=== PATIENT | male | born 1950 | race Caucasian/White ===

== ENCOUNTER 2016-06-04 12:15 | Emergency (ER) | payer MEDICARE, MEDICAID ==
[2016-06-04 12:32] VITALS: BP 125/82; TEMP 97.9; O2SAT 98
[2016-06-04] MEDS ORDERED: CHLORHEXIDINE GLUCONATE 4 % 15 ML UD TOP ONE (12:41)
--- NOTE | 2016-06-04 13:08 | ED.PDOC ---
History of Present Illness - General Chief Complaint: Laceration Stated Complaint: laceration Time Seen by Provider: 06/04/16 13:05 Source: patient, RN notes reviewed, Vital Signs reviewed Exam Limitations: no limitations - History of Present Illness Initial Comments: This very pleasant 66 y/o male cut the tip of his right thumb while slicing tomatoes. Because he is on Eliquis, it bled quite a bit. The bleeding is now under control. He has only mild pain, no tingling. Timing/Duration: 1/2 hour Severity: mild Improving Factors: nothing Worsening Factors: nothing Associated Symptoms: denies symptoms Allergies/Adverse Reactions: Allergies Codeine Allergy (Severe, Verified 03/05/16 15:03) Other Creates a feeling of having a heart attack, panic attack Home Medications: Ambulatory Orders Levothyroxine Sodium [Levoxyl] 137 mcg PO DAILY 10/13/14 Lubiprostone [Amitiza] 24 mcg PO BID 10/13/14 Nitroglycerin [Nitrostat] 0.4 mg SL Q5MIN PRN 10/13/14 Pravastatin Sodium [Pravachol] 40 mg PO BEDTIME 10/13/14 Quetiapine Fumarate [Seroquel Xr] 50 mg PO BEDTIME 10/13/14 Venlafaxine HCl [Venlafaxine HCl ER] 150 mg PO DAILY 10/13/14 fentaNYL PATCH 100 MCG/HR [Duragesic Patch 100 MCG/HR] 100 mcg TOP Q72H Clonazepam 0.5 mg PO BEDTIME PRN 11/10/15 Cyanocobalamin Inj [Vitamin B-12 Inj] 1,000 mcg IM WKLY 11/10/15 Digoxin [Lanoxin Tab] 0.125 mg PO DAILY@1200 11/10/15 Docusate Sodium [Colace] 100 mg PO BID 11/10/15 Furosemide 40 mg PO BID PRN 11/10/15 Polyethylene Glycol 3350 [Miralax] 17 gm PO DAILY 11/10/15 Trazodone HCl 150 mg PO BEDTIME 11/10/15 Apixaban [Eliquis] 5 mg PO BID 01/21/16 Ferrous Sulfate [Feosol Tab] 65 mg PO DAILY 01/21/16 Flecainide [Tambocor] 100 mg PO BID 01/21/16 HYDROcodone 10MG/APAP 325MG [[place] 10/325] 1 tab PO Q4H PRN 01/21/16 Insulin Glargine [Toujeo Solostar] 10 dose SC DAILY 01/21/16 Mometasone Furoate-Formoterol [Dulera 200-5 Mcg/Act] 1 aer IN BID 01/21/16 Potassium Chloride Microencaps [Klor-Con M20] 20 meq PO BID PRN 01/21/16 diltiaZEM HCL CD [Cardizem CD] 120 mg PO QD 01/21/16 Review of Systems - Review of Systems Constitutional: States: no symptoms reported EENTM: States: no symptoms reported Respiratory: States: no symptoms reported Cardiology: States: no symptoms reported Gastrointestinal/Abdominal: States: no symptoms reported Genitourinary: States: no symptoms reported Musculoskeletal: States: no symptoms reported Skin: States: other - laceration Neurological: States: no symptoms reported Endocrine: States: no symptoms reported Hematologic/Lymphatic: States: no symptoms reported All other Systems: Reviewed and Negative Past Medical History (General) - Patient Medical History Hx Seizures: No Hx Stroke: Yes Hx Dementia: No Hx Asthma: No Hx of COPD: Yes Hx Cardiac Disorders: Yes - Atrial fib Hx Congestive Heart Failure: Yes Hx Pacemaker: No Hx Hypertension: Yes Hx Thyroid Disease: No Hx Diabetes: Yes Hx Gastroesophageal Reflux: No Hx Renal Disease: No Hx Cancer: No Hx of HIV: No Hx Hepatitis C: No Hx MRSA: No - Vaccination History Hx Tetanus, Diphtheria Vaccination: Yes - 3 years ago Hx Influenza Vaccination: Yes Hx Pneumococcal Vaccination: Yes - Social History Hx Tobacco Use: Yes Hx Chewing Tobacco Use: No Hx Alcohol Use: No Hx Substance Use: No Hx Substance Use Treatment: No Hx Depression: No Hx Physical Abuse: No Hx Emotional Abuse: No Hx Suspected Abuse: No - Female History Patient : No Family Medical History - Family History Father Family History: Unknown Name: Ton Gomez Living Status: Age at (years of age): 41 Cause of : enlarged heart and acute alcohol poisioning Hx Family Asthma: No Hx Family Congestive Heart Failure: Yes Hx Family Hypertension: Yes Hx Family Stroke: No Hx Cardiac Disease: Yes Hx Family Diabetes: Yes Hx Family Cancer: No Physical Exam - Physical Exam General Appearance: Alert, Comfortable, No apparent distress Ears, Nose, Throat: hearing grossly normal Extremity: normal range of motion, non-tender Neurologic: alert, normal mood/affect, oriented x 3 Skin Exam: other - small flap laceration to right volar tip of thumb. No fingernail involvement. Bleeding controlled. Progress - Progress Progress: 06/04/16 13:11 Right thumb was soaked in Shurlcleans and water for 15 minutes, then Dermabond applied. Procedures - Laceration/Wound Repair Right Finger Wound Length (cm): 0.5 Wound's Depth, Shape: superficial, irregular Wound Explored: clean Betadine Prep?: No - Soaked in Shurclens and water for 15 minutes. Wound Repaired With: dermabond Layer Closure?: No Sterile Dressing Applied?: Yes Splint Applied?: No Sling Applied?: No Departure - Departure Clinical Impression: Laceration of thumb Qualifiers: Encounter type: initial encounter Laterality: right Qualifier Code: (S61.011A) Laceration without foreign body of right thumb without damage to nail, initial encounter Time of Disposition: 13:12 Disposition: Discharge to Home or Self Care Condition: Excellent Departure Forms: ED Discharge - Pt. Copy, Patient Portal Self Enrollment Instructions: DI for Laceration Repair With Dermabond Diet: resume usual diet Home Medications: Ambulatory Orders Levothyroxine Sodium [Levoxyl] 137 mcg PO DAILY 10/13/14 Lubiprostone [Amitiza] 24 mcg PO BID 10/13/14 Nitroglycerin [Nitrostat] 0.4 mg SL Q5MIN PRN 10/13/14 Pravastatin Sodium [Pravachol] 40 mg PO BEDTIME 10/13/14 Quetiapine Fumarate [Seroquel Xr] 50 mg PO BEDTIME 10/13/14 Venlafaxine HCl [Venlafaxine HCl ER] 150 mg PO DAILY 10/13/14 fentaNYL PATCH 100 MCG/HR [Duragesic Patch 100 MCG/HR] 100 mcg TOP Q72H Clonazepam 0.5 mg PO BEDTIME PRN 11/10/15 Cyanocobalamin Inj [Vitamin B-12 Inj] 1,000 mcg IM WKLY 11/10/15 Digoxin [Lanoxin Tab] 0.125 mg PO DAILY@1200 11/10/15 Docusate Sodium [Colace] 100 mg PO BID 11/10/15 Furosemide 40 mg PO BID PRN 11/10/15 Polyethylene Glycol 3350 [Miralax] 17 gm PO DAILY 11/10/15 Trazodone HCl 150 mg PO BEDTIME 11/10/15 Apixaban [Eliquis] 5 mg PO BID 01/21/16 Ferrous Sulfate [Feosol Tab] 65 mg PO DAILY 01/21/16 Flecainide [Tambocor] 100 mg PO BID 01/21/16 HYDROcodone 10MG/APAP 325MG [[place] ] 1 tab PO Q4H PRN 01/21/16 Insulin Glargine [Toujeo Solostar] 10 dose SC DAILY 01/21/16 Mometasone Furoate-Formoterol [Dulera 200-5 Mcg/Act] 1 aer IN BID 01/21/16 Potassium Chloride Microencaps [Klor-Con M20] 20 meq PO BID PRN 01/21/16 diltiaZEM HCL CD [Cardizem CD] 120 mg PO QD 01/21/16 Additional Instructions: Follow up for any signs or symptoms of infection.
== END 2016-06-04 13:20 | disposition home or self-care (01) ==
LOC: ER 12:15
DX: S61.011A Laceration without foreign body of right thumb without damage to nail, initial encounter (principal); I48.91 Unspecified atrial fibrillation; J44.9 Chronic obstructive pulmonary disease, unspecified; Z86.73 Personal history of transient ischemic attack (TIA), and cerebral infarction without residual deficits; I11.0 Hypertensive heart disease with heart failure; I50.9 Heart failure, unspecified; E11.9 Type 2 diabetes mellitus without complications; Z87.891 Personal history of nicotine dependence; Z79.02 Long term (current) use of antithrombotics/antiplatelets; Z79.899 Other long term (current) drug therapy; Z79.4 Long term (current) use of insulin; W26.0XXA Contact with knife, initial encounter; Y93.G1 Activity, food preparation and clean up

== ENCOUNTER → 2016-06-16 | Outpatient (CLI) | payer MEDICARE, MEDICAID | END | disposition home or self-care (01) | LOC: NC 14:03 | PROVIDERS: ATTEND Family Medicine | DX: E11.9 Type 2 diabetes mellitus without complications (principal); E03.9 Hypothyroidism, unspecified; E78.5 Hyperlipidemia, unspecified ==

== ENCOUNTER 2016-07-15 15:50 | Emergency (ER) | payer MEDICARE, MEDICAID ==
[2016-07-15 16:06] VITALS: TEMP 98.3
[2016-07-15] MEDS ORDERED: LIDOCAINE 1% 10 ML VIAL INJ ONE (16:11)
[2016-07-15] MEDS ORDERED: POVIDONE IODINE 10 % 15 ML UD TOP ONE (16:13)
--- NOTE | 2016-07-15 16:14 | ED.PDOC ---
History of Present Illness - General Chief Complaint: Laceration Stated Complaint: laceration Time Seen by Provider: 07/15/16 15:58 Source: patient, RN notes reviewed, Vital Signs reviewed Exam Limitations: no limitations - History of Present Illness Initial Comments: Patient reports he was using a slicer to cut onions and ended up slicing the edge of his right thumb. Moderate bleeding. Timing/Duration: just prior to arrival Severity: moderate Location: extremities Improving Factors: other - pressure Worsening Factors: nothing Allergies/Adverse Reactions: Allergies Codeine Allergy (Severe, Verified 03/05/16 15:03) Other Creates a feeling of having a heart attack, panic attack Home Medications: Ambulatory Orders Levothyroxine Sodium [Levoxyl] 137 mcg PO DAILY 10/13/14 Lubiprostone [Amitiza] 24 mcg PO BID 10/13/14 Nitroglycerin [Nitrostat] 0.4 mg SL Q5MIN PRN 10/13/14 Pravastatin Sodium [Pravachol] 40 mg PO BEDTIME 10/13/14 Quetiapine Fumarate [Seroquel Xr] 50 mg PO BEDTIME 10/13/14 Venlafaxine HCl [Venlafaxine HCl ER] 150 mg PO DAILY 10/13/14 fentaNYL PATCH 100 MCG/HR [Duragesic Patch 100 MCG/HR] 100 mcg TOP Q72H Clonazepam 0.5 mg PO BEDTIME PRN 11/10/15 Cyanocobalamin Inj [Vitamin B-12 Inj] 1,000 mcg IM WKLY 11/10/15 Digoxin [Lanoxin Tab] 0.125 mg PO DAILY@1200 11/10/15 Docusate Sodium [Colace] 100 mg PO BID 11/10/15 Furosemide 40 mg PO BID PRN 11/10/15 Polyethylene Glycol 3350 [Miralax] 17 gm PO DAILY 11/10/15 Trazodone HCl 150 mg PO BEDTIME 11/10/15 Apixaban [Eliquis] 5 mg PO BID 01/21/16 Ferrous Sulfate [Feosol Tab] 65 mg PO DAILY 01/21/16 Flecainide [Tambocor] 100 mg PO BID 01/21/16 HYDROcodone 10MG/APAP 325MG [[place] 10/325] 1 tab PO Q4H PRN 01/21/16 Insulin Glargine [Toujeo Solostar] 10 dose SC DAILY 01/21/16 Mometasone Furoate-Formoterol [Dulera 200-5 Mcg/Act] 1 aer IN BID 01/21/16 Potassium Chloride Microencaps [Klor-Con M20] 20 meq PO BID PRN 01/21/16 diltiaZEM HCL CD [Cardizem CD] 120 mg PO QD 01/21/16 Review of Systems - Review of Systems Constitutional: States: no symptoms reported Musculoskeletal: States: no symptoms reported Skin: States: see HPI Neurological: Denies: numbness, paresthesia Past Medical History (General) - Patient Medical History Hx Seizures: No Hx Stroke: Yes Hx Dementia: No Hx Asthma: No Hx of COPD: Yes Hx Cardiac Disorders: Yes - Atrial fib Hx Congestive Heart Failure: Yes Hx Pacemaker: No Hx Hypertension: Yes Hx Thyroid Disease: No Hx Diabetes: Yes Hx Gastroesophageal Reflux: No Hx Renal Disease: No Hx Cancer: No Hx of HIV: No Hx Hepatitis C: No Hx MRSA: No - Vaccination History Hx Tetanus, Diphtheria Vaccination: Yes - 5 years ago Hx Influenza Vaccination: Yes Hx Pneumococcal Vaccination: Yes - Social History Hx Tobacco Use: Yes Hx Chewing Tobacco Use: No Hx Alcohol Use: No Hx Substance Use: No Hx Substance Use Treatment: No Hx Depression: No Hx Physical Abuse: No Hx Emotional Abuse: No Hx Suspected Abuse: No - Female History Patient : No Family Medical History - Family History Father Family History: Unknown Name: Ton Gomez Living Status: Age at (years of age): 41 Cause of : enlarged heart and acute alcohol poisioning Hx Family Asthma: No Hx Family Congestive Heart Failure: Yes Hx Family Hypertension: Yes Hx Family Stroke: No Hx Cardiac Disease: Yes Hx Family Diabetes: Yes Hx Family Cancer: No Physical Exam - Physical Exam General Appearance: Alert, Comfortable, No apparent distress, Well Developed, Well Groomed, Well Hydrated, Well Nourished Extremity: normal range of motion, non-tender, normal inspection, no pedal edema Neurologic: no motor/sensory deficits, alert, normal mood/affect, oriented x 3 Skin Exam: other - Right lateral thumb flap type laceration ~2.5cm with moderate bleeding. Skin Problem Location: upper extremities - right thumb Skin Character: other - see above Progress - Progress Progress: 07/15/16 17:17 After numbing thumb via a digital block with 2cc of 1% Lidocaine and cleaning wound and surrounding area well, noted the flap was pale, did not franchesca and had no capillary refill. Appeared to only be attached by a small flap of skin at distal edge of thumb nail. Decision was made to close/cover with steri- strips with the understanding that the flap may not survive. Patient understands and agrees with plan. Departure - Departure Clinical Impression: Accidental laceration Time of Disposition: 17:19 Disposition: Discharge to Home or Self Care Condition: Good Departure Forms: ED Discharge - Pt. Copy, Patient Portal Self Enrollment Instructions: DI for Laceration Repair Steri-Strips Diet: resume usual diet Activity: increase activity as tolerated Home Medications: Ambulatory Orders Levothyroxine Sodium [Levoxyl] 137 mcg PO DAILY 10/13/14 Lubiprostone [Amitiza] 24 mcg PO BID 10/13/14 Nitroglycerin [Nitrostat] 0.4 mg SL Q5MIN PRN 10/13/14 Pravastatin Sodium [Pravachol] 40 mg PO BEDTIME 10/13/14 Quetiapine Fumarate [Seroquel Xr] 50 mg PO BEDTIME 10/13/14 Venlafaxine HCl [Venlafaxine HCl ER] 150 mg PO DAILY 10/13/14 fentaNYL PATCH 100 MCG/HR [Duragesic Patch 100 MCG/HR] 100 mcg TOP Q72H Clonazepam 0.5 mg PO BEDTIME PRN 11/10/15 Cyanocobalamin Inj [Vitamin B-12 Inj] 1,000 mcg IM WKLY 11/10/15 Digoxin [Lanoxin Tab] 0.125 mg PO DAILY@1200 11/10/15 Docusate Sodium [Colace] 100 mg PO BID 11/10/15 Furosemide 40 mg PO BID PRN 11/10/15 Polyethylene Glycol 3350 [Miralax] 17 gm PO DAILY 11/10/15 Trazodone HCl 150 mg PO BEDTIME 11/10/15 Apixaban [Eliquis] 5 mg PO BID 01/21/16 Ferrous Sulfate [Feosol Tab] 65 mg PO DAILY 01/21/16 Flecainide [Tambocor] 100 mg PO BID 01/21/16 HYDROcodone 10MG/APAP 325MG [[place] 10/325] 1 tab PO Q4H PRN 01/21/16 Insulin Glargine [Toujeo Solostar] 10 dose SC DAILY 01/21/16 Mometasone Furoate-Formoterol [Dulera 200-5 Mcg/Act] 1 aer IN BID 01/21/16 Potassium Chloride Microencaps [Klor-Con M20] 20 meq PO BID PRN 01/21/16 diltiaZEM HCL CD [Cardizem CD] 120 mg PO QD 01/21/16
[2016-07-15 17:41] VITALS: BP 167/92; O2SAT 100
== END 2016-07-15 17:41 | disposition home or self-care (01) ==
LOC: ER 15:50
DX: S61.011A Laceration without foreign body of right thumb without damage to nail, initial encounter (principal); I48.91 Unspecified atrial fibrillation; I11.0 Hypertensive heart disease with heart failure; I50.9 Heart failure, unspecified; E11.9 Type 2 diabetes mellitus without complications; Z86.73 Personal history of transient ischemic attack (TIA), and cerebral infarction without residual deficits; Z79.4 Long term (current) use of insulin; Z79.899 Other long term (current) drug therapy; Z79.02 Long term (current) use of antithrombotics/antiplatelets; Z88.6 Allergy status to analgesic agent; W26.0XXA Contact with knife, initial encounter; Y92.9 Unspecified place or not applicable

== ENCOUNTER 2016-10-19 12:01 | Emergency (ER) | payer MEDICARE, MEDICAID ==
[2016-10-19 12:21] VITALS: TEMP 98.5
--- NOTE | 2016-10-19 12:32 | CT ---
EXAM DESCRIPTION: Head. CT head without contrast CLINICAL HISTORY: fall onto head. Is on anticoagulants COMPARISON: 04/04/2016 TECHNIQUE: Multiple axial images of the head without contrast. This exam was performed according to our departmental dose-optimization program, which includes automated exposure control, adjustment of the mA and/or kV according to patient size and/or use of iterative reconstruction technique. FINDINGS: There is no CT evidence of intracranial hemorrhage, mass effect, or new large territory infarction. Chronic infarct with encephalomalacia in the left cerebellar hemisphere. Mild patchy supratentorial white matter hypodensities. There are no abnormal extra-axial fluid collections. Calcific plaque in the visualized arteries. There is no acute calvarial defect. The visualized paranasal sinuses and the mastoids are clear. IMPRESSION: 1. No CT evidence of an acute intracranial normality. 2. Mild senescent changes. 3. Chronic left cerebellar infarct. Electronically signed by: Ke Flores MD 10/19/2016 12:30 PM CDT
--- NOTE | 2016-10-19 12:39 | RAD ---
EXAM DESCRIPTION: Right forearm, 2 views CLINICAL HISTORY: Pain after fall FINDINGS/ IMPRESSION: Mild osteoarthritis and chondrocalcinosis faintly seen at the elbow and wrist. Osteopenia. No fracture of the radius or ulna identified Electronically signed by: Deondre Enriquez MD 10/19/2016 12:37 PM CDT
--- NOTE | 2016-10-19 12:54 | RAD ---
EXAM DESCRIPTION: Shoulder,Left 2 or More Views CLINICAL HISTORY: left shoulder after fall FINDINGS/ IMPRESSION: Glenohumeral joint space narrowing. No fracture or dislocation. Mild osteoarthritis acromioclavicular joint Electronically signed by: Deondre Enriquez MD 10/19/2016 12:53 PM CDT
[2016-10-19] MEDS ORDERED: SODIUM CHLORIDE 0.9% 1000ML 1,000 ML IVS ONE (13:18)
--- NOTE | 2016-10-19 13:53 | ED.PDOC ---
History of Present Illness - General Chief Complaint: Trauma Stated Complaint: fall Time Seen by Provider: 10/19/16 12:14 Source: patient Exam Limitations: no limitations - History of Present Illness Initial Comments: Patient presents with headache, left shoulder pain, and right forearm pain after a fall. He has been having dizzy spells and is being treated with meclizine. He is also on Eloquis for atrial fibrillation. He was coming into his house when he felt dizzy and fell to the floor, striking the back of his head as well as his left shoulder. He also tried to break the fall with his right arm. Pain in the head is left occipito-parietal, constant, non-radiating , and sharpy. Intermittent in intensity. Pain in left shoulder is located at the A-C joint, constant and aching, intermittent in intensity, worse with movement, better with rest. No previous episodes this bad but has had some rotator cuff problems. Pain in right forearm is aching, constant, locate mid- radius laterally, worse with movement, better with rest. No current associated symptoms. No current dizziness. No other complaint. Patient is a well- controlled NIDDM. Timing/Duration: 1-3 hours Severity: moderate Improving Factors: rest Worsening Factors: movement Associated Symptoms: denies symptoms Allergies/Adverse Reactions: Allergies Codeine Allergy (Severe, Verified 10/19/16 12:21) Other Creates a feeling of having a heart attack, panic attack Home Medications: Ambulatory Orders Levothyroxine Sodium [Levoxyl] 137 mcg PO DAILY 10/13/14 Lubiprostone [Amitiza] 24 mcg PO BID 10/13/14 Nitroglycerin [Nitrostat] 0.4 mg SL Q5MIN PRN 10/13/14 Pravastatin Sodium [Pravachol] 40 mg PO BEDTIME 10/13/14 Quetiapine Fumarate [Seroquel Xr] 50 mg PO BEDTIME 10/13/14 Venlafaxine HCl [Venlafaxine HCl ER] 150 mg PO DAILY 10/13/14 fentaNYL PATCH 100 MCG/HR [Duragesic Patch 100 MCG/HR] 100 mcg TOP Q72H Clonazepam 0.5 mg PO BEDTIME PRN 11/10/15 Cyanocobalamin Inj [Vitamin B-12 Inj] 1,000 mcg IM WKLY 11/10/15 Digoxin [Lanoxin Tab] 0.125 mg PO DAILY@1200 11/10/15 Docusate Sodium [Colace] 100 mg PO BID 11/10/15 Furosemide 40 mg PO BID PRN 11/10/15 Polyethylene Glycol 3350 [Miralax] 17 gm PO DAILY 11/10/15 Trazodone HCl 150 mg PO BEDTIME 11/10/15 Apixaban [Eliquis] 5 mg PO BID 01/21/16 Ferrous Sulfate [Feosol Tab] 65 mg PO DAILY 01/21/16 Flecainide [Tambocor] 100 mg PO BID 01/21/16 HYDROcodone 10MG/APAP 325MG [[place] [address]] 1 tab PO Q4H PRN 01/21/16 Insulin Glargine [Toujeo Solostar] 10 dose SC DAILY 01/21/16 Mometasone Furoate-Formoterol [Dulera 200-5 Mcg/Act] 1 aer IN BID 01/21/16 Potassium Chloride Microencaps [Klor-Con M20] 20 meq PO BID PRN 01/21/16 diltiaZEM HCL CD [Cardizem CD] 120 mg PO QD 01/21/16 Review of Systems - Review of Systems Constitutional: States: no symptoms reported EENTM: States: no symptoms reported Respiratory: States: no symptoms reported Cardiology: States: no symptoms reported Gastrointestinal/Abdominal: States: no symptoms reported Genitourinary: States: no symptoms reported Musculoskeletal: States: see HPI Skin: States: no symptoms reported Neurological: States: see HPI Endocrine: States: see HPI Hematologic/Lymphatic: States: no symptoms reported Past Medical History (General) - Patient Medical History Hx Seizures: No Hx Stroke: Yes Hx Dementia: No Hx Asthma: No Hx of COPD: Yes Hx Cardiac Disorders: Yes - Atrial fib Hx Congestive Heart Failure: Yes Hx Pacemaker: No Hx Hypertension: Yes Hx Thyroid Disease: Yes Hx Diabetes: Yes Hx Gastroesophageal Reflux: No Hx Renal Disease: No Hx Cancer: No Hx of HIV: No Hx Hepatitis C: No Hx MRSA: No Surgical History: other - Vaccination History Hx Tetanus, Diphtheria Vaccination: - 5 years ago Hx Influenza Vaccination: Yes Hx Pneumococcal Vaccination: Yes - Social History Hx Tobacco Use: No Hx Chewing Tobacco Use: No Hx Alcohol Use: Yes - occasional Hx Substance Use: No Hx Substance Use Treatment: No Hx Depression: No Hx Physical Abuse: No Hx Emotional Abuse: No Hx Suspected Abuse: No - Activities of Daily Living Hospice Agency (if applicable):: None - Female History Patient is a Female of Child Bearing Age (10 -59 yrs old): No Patient : No Family Medical History - Family History Father Family History: Unknown Name: Ton Gomez Living Status: Age at (years of age): 41 Cause of : enlarged heart and acute alcohol poisioning Hx Family Asthma: No Hx Family Congestive Heart Failure: Yes Hx Family Hypertension: Yes Hx Family Stroke: No Hx Cardiac Disease: Yes Hx Family Diabetes: Yes Hx Family Cancer: No Physical Exam - Physical Exam General Appearance: Alert Eye Exam: bilateral normal Ears, Nose, Throat: normal ENT inspection Neck: non-tender, full range of motion, supple Respiratory: lungs clear Cardiovascular/Chest: normal peripheral pulses, regular rate, rhythm Gastrointestinal/Abdominal: normal bowel sounds, non tender, soft Back Exam: no CVA tenderness Extremity: no pedal edema, other - "Beer can" sign shows rotator cuff pain with 4/5 strength. 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 Radiographs of left shoulder and right forearm showed no bony abnormalities, fractures, nor dislocations. Patient given one liter IV NS. 10/19/16 15:22 Patient received one liter NS. He felt much better. He was advised to see his pain control doctor and a neurologist regarding his frequent falls. Laboratory Tests 10/19/16 10/19/16 10/19/16 12:50 12:50 12:50 WBC 7.5 RBC 4.46 L Hgb 14.1 Hct 42.0 MCV 94.0 MCH 31.6 H MCHC 33.6 RDW 14.1 Plt Count 212 MPV 7.7 Absolute Neuts (auto) 4.30 Absolute Lymphs (auto) 2.20 Absolute Monos (auto) 0.70 Absolute Eos (auto) 0.20 Absolute Basos (auto) 0.10 Neutrophils % 58.2 Lymphocytes % 29.1 Monocytes % 8.7 Eosinophils % 2.9 Basophils % 1.1 PT 14.6 H INR 1.300 PTT (SP) 36.5 Sodium 138 Potassium 4.6 Chloride 101 Carbon Dioxide 29 Anion Gap 12.6 BUN 33 H Creatinine 0.77 BUN/Creatinine Ratio 42.9 H POC Glucose Random Glucose 86 Serum Osmolality 282.2 Calcium 9.0 Total Bilirubin 0.9 AST 29 ALT 28 Alkaline Phosphatase 73 Serum Total Protein 6.2 L Albumin 3.8 Globulin 2.4 Albumin/Globulin Ratio 1.6 TSH Thyroxine (T4) Urine Color Urine Appearance Urine pH Ur Specific [place] Urine Protein Urine Glucose (UA) Urine Ketones Urine Blood Urine Nitrite Urine Bilirubin Urine Urobilinogen Ur Leukocyte Esterase Urine RBC Urine WBC Ur Epithelial Cells Amorphous Sediment Urine Bacteria 10/19/16 10/19/16 10/19/16 12:50 12:50 13:40 WBC RBC Hgb Hct MCV MCH MCHC RDW Plt Count MPV Absolute Neuts (auto) Absolute Lymphs (auto) Absolute Monos (auto) Absolute Eos (auto) Absolute Basos (auto) Neutrophils % Lymphocytes % Monocytes % Eosinophils % Basophils % PT INR PTT (SP) Sodium Potassium Chloride Carbon Dioxide Anion Gap BUN Creatinine BUN/Creatinine Ratio POC Glucose 82 Random Glucose Serum Osmolality Calcium Total Bilirubin AST ALT Alkaline Phosphatase Serum Total Protein Albumin Globulin Albumin/Globulin Ratio TSH 0.59 Thyroxine (T4) 6.14 Urine Color Yellow Urine Appearance Clear Urine pH 5.5 Ur Specific [place] 1.025 Urine Protein Negative Urine Glucose (UA) Negative Urine Ketones Negative Urine Blood Negative Urine Nitrite Negative Urine Bilirubin Negative Urine Urobilinogen 1.0 Ur Leukocyte Esterase Negative Urine RBC 0 Urine WBC 0 Ur Epithelial Cells 0-1 Amorphous Sediment 1+ Urine Bacteria 0 Departure - Departure Clinical Impression: Dizziness, Fall Disposition: Discharge to Home or Self Care Condition: Good Departure Forms: ED Discharge - Pt. Copy, Patient Portal Self Enrollment Diet: resume usual diet Activity: increase activity as tolerated Referrals: Mckenzie Barrett DO [Primary Care Provider] - 1-2 Weeks Home Medications: Ambulatory Orders Levothyroxine Sodium [Levoxyl] 137 mcg PO DAILY 10/13/14 Lubiprostone [Amitiza] 24 mcg PO BID 10/13/14 Nitroglycerin [Nitrostat] 0.4 mg SL Q5MIN PRN 10/13/14 Pravastatin Sodium [Pravachol] 40 mg PO BEDTIME 10/13/14 Quetiapine Fumarate [Seroquel Xr] 50 mg PO BEDTIME 10/13/14 Venlafaxine HCl [Venlafaxine HCl ER] 150 mg PO DAILY 10/13/14 fentaNYL PATCH 100 MCG/HR [Duragesic Patch 100 MCG/HR] 100 mcg TOP Q72H Clonazepam 0.5 mg PO BEDTIME PRN 11/10/15 Cyanocobalamin Inj [Vitamin B-12 Inj] 1,000 mcg IM WKLY 11/10/15 Digoxin [Lanoxin Tab] 0.125 mg PO DAILY@1200 11/10/15 Docusate Sodium [Colace] 100 mg PO BID 11/10/15 Furosemide 40 mg PO BID PRN 11/10/15 Polyethylene Glycol 3350 [Miralax] 17 gm PO DAILY 11/10/15 Trazodone HCl 150 mg PO BEDTIME 11/10/15 Apixaban [Eliquis] 5 mg PO BID 01/21/16 Ferrous Sulfate [Feosol Tab] 65 mg PO DAILY 01/21/16 Flecainide [Tambocor] 100 mg PO BID 01/21/16 HYDROcodone 10MG/APAP 325MG [[place] 10/325] 1 tab PO Q4H PRN 01/21/16 Insulin Glargine [Toujeo Solostar] 10 dose SC DAILY 01/21/16 Mometasone Furoate-Formoterol [Dulera 200-5 Mcg/Act] 1 aer IN BID 01/21/16 Potassium Chloride Microencaps [Klor-Con M20] 20 meq PO BID PRN 01/21/16 diltiaZEM HCL CD [Cardizem CD] 120 mg PO QD 01/21/16 Additional Instructions: See your pain management doctor. Follow up with a neurologist for your dizziness. Follow up with Dr. Cronin if your left shoulder pain does not resolve within two weeks.
[2016-10-19 15:57] VITALS: BP 107/63; O2SAT 96
== END 2016-10-19 15:49 | disposition home or self-care (01) ==
LOC: ER 12:01
DX: R42 Dizziness and giddiness (principal); J44.9 Chronic obstructive pulmonary disease, unspecified; I48.91 Unspecified atrial fibrillation; E07.9 Disorder of thyroid, unspecified; E11.9 Type 2 diabetes mellitus without complications; I11.0 Hypertensive heart disease with heart failure; I50.9 Heart failure, unspecified; Z88.6 Allergy status to analgesic agent; Z79.899 Other long term (current) drug therapy; Z79.4 Long term (current) use of insulin; Z79.01 Long term (current) use of anticoagulants; W19.XXXA Unspecified fall, initial encounter; Z91.81 History of falling; Y92.008 Other place in unspecified non-institutional (private) residence as the place of occurrence of the external cause
CPT/HCPCS: 36415; 70450; 73030; 73090; 80053; 81001; 82948; 84436; 84443; 85025; 85610; 85730; J7030

== ENCOUNTER → 2016-10-31 | Outpatient (CLI) | payer MEDICARE, MEDICAID ==
--- NOTE | 2016-11-01 10:27 | MRI ---
MRI left shoulder without contrast INDICATION: Shoulder pain rotator cuff syndrome limited range of motion chronic symptoms TECHNIQUE: Noncontrast MR imaging left shoulder standard protocol FINDINGS: There is fairly advanced glenohumeral osteoarthrosis. Extensive subacromial and subdeltoid bursitis with synovitis. Moderate hypertrophic AC joint osteoarthrosis. There are high-grade interstitial partial tears of the distal supraspinatus and infraspinatus. The supraspinatus tear is effectively full-thickness at the critical zone with intramuscular edema suggesting developing disuse atrophy. There is volumetric atrophy of the subscapularis grade 2-3. Mild grade 2 marbling of the infraspinatus muscle belly. There is diffuse labral degeneration related to the glenohumeral osteoarthrosis. Ill-defined full-thickness tear of the subscapularis without bicep rupture or dislocation. There is diffuse interstitial tendinosis and fraying of the proximal extracapsular and intracapsular bicep. IMPRESSION: Essentially full-thickness non retracted tear supraspinatus critical zone with intramuscular edema suggesting developing atrophy Effectively full-thickness tear of of the distal subscapularis with mild retraction to the glenohumeral joint level Generalized muscle atrophy as described above Fairly advanced glenohumeral osteoarthrosis with diffuse labral degeneration Interstitial tendinosis and fraying long head bicep without complete rupture or dislocation Extensive subacromial and subdeltoid bursitis Hypertrophic AC joint osteoarthrosis Electronically signed by: Andreas Mauricio MD 11/01/2016 10:26 AM CDT
== END ==
LOC: MRI 10:02
PROVIDERS: ATTEND Orthopaedic Surgery
DX: M75.102 Unspecified rotator cuff tear or rupture of left shoulder, not specified as traumatic (principal); M19.012 Primary osteoarthritis, left shoulder

== ENCOUNTER 2016-11-26 06:40 | Emergency (ER) | payer MEDICARE, MEDICAID ==
[2016-11-26] MEDS ORDERED: CHLORHEXIDINE GLUCONATE 4 % 15 ML UD TOP ONE (06:45)
[2016-11-26 06:58] VITALS: TEMP 98.3; O2SAT 97
[2016-11-26] MEDS ORDERED: NEOMYCIN-BACITRACIN-POLYMYXIN 30 GM TUBE TOP ONE (07:06)
[2016-11-26] MEDS ORDERED: NEOMYCIN-BACITRACIN-POLYMYXIN 0.9 GM UD TOP ONE (07:10)
[2016-11-26] MEDS ORDERED: LIDOCAINE 1% W/ EPINEPHRINE 20 ML VIAL INJ ONE (07:12)
--- NOTE | 2016-11-26 07:27 | ED.PDOC ---
History of Present Illness - General Chief Complaint: Laceration Stated Complaint: laceration to foot Time Seen by Provider: 11/26/16 07:05 Source: patient, RN notes reviewed, Vital Signs reviewed Exam Limitations: no limitations - History of Present Illness Initial Comments: Last evening, >12 hours ago, patient dropped a knife and cut his R inner ankle. He had significant bleeding so EMS was called. They bandaged area with a pressure dressing. During the night his foot/ankle was throbbing so he removed the dressing. Wound was still bleeding so he came in for definitive management. Timing/Duration: yesterday Severity: moderate Location: extremities Improving Factors: other - Pressure dressing Worsening Factors: movement Associated Symptoms: denies symptoms Allergies/Adverse Reactions: Allergies Codeine Allergy (Severe, Verified 10/19/16 12:21) Other Creates a feeling of having a heart attack, panic attack Home Medications: Ambulatory Orders Levothyroxine Sodium [Levoxyl] 137 mcg PO DAILY 10/13/14 Lubiprostone [Amitiza] 24 mcg PO BID 10/13/14 Nitroglycerin [Nitrostat] 0.4 mg SL Q5MIN PRN 10/13/14 Pravastatin Sodium [Pravachol] 40 mg PO BEDTIME 10/13/14 Quetiapine Fumarate [Seroquel Xr] 50 mg PO BEDTIME 10/13/14 Venlafaxine HCl [Venlafaxine HCl ER] 150 mg PO DAILY 10/13/14 fentaNYL PATCH 100 MCG/HR [Duragesic Patch 100 MCG/HR] 100 mcg TOP Q72H Clonazepam 0.5 mg PO BEDTIME PRN 11/10/15 Cyanocobalamin Inj [Vitamin B-12 Inj] 1,000 mcg IM WKLY 11/10/15 Digoxin [Lanoxin Tab] 0.125 mg PO DAILY@1200 11/10/15 Docusate Sodium [Colace] 100 mg PO BID 11/10/15 Furosemide 40 mg PO BID PRN 11/10/15 Polyethylene Glycol 3350 [Miralax] 17 gm PO DAILY 11/10/15 Trazodone HCl 150 mg PO BEDTIME 11/10/15 Apixaban [Eliquis] 5 mg PO BID 01/21/16 Ferrous Sulfate [Feosol Tab] 65 mg PO DAILY 01/21/16 Flecainide [Tambocor] 100 mg PO BID 01/21/16 HYDROcodone 10MG/APAP 325MG [[place] 10/325] 1 tab PO Q4H PRN 01/21/16 Insulin Glargine [Toujeo Solostar] 10 dose SC DAILY 01/21/16 Mometasone Furoate-Formoterol [Dulera 200-5 Mcg/Act] 1 aer IN BID 01/21/16 Potassium Chloride Microencaps [Klor-Con M20] 20 meq PO BID PRN 01/21/16 diltiaZEM HCL CD [Cardizem CD] 120 mg PO QD 01/21/16 Cephalexin Monohydrate [Keflex] 500 mg PO BID #14 cap 11/26/16 Review of Systems - Review of Systems Constitutional: States: no symptoms reported Respiratory: States: no symptoms reported Cardiology: States: no symptoms reported Musculoskeletal: States: no symptoms reported Skin: States: see HPI Neurological: States: no symptoms reported Hematologic/Lymphatic: States: easy bleeding - due to being on Eliquis and Aspirin All other Systems: No Change from Baseline Past Medical History (General) - Patient Medical History Hx Seizures: No Hx Stroke: Yes Hx Dementia: No Hx Asthma: No Hx of COPD: Yes Hx Cardiac Disorders: Yes - Atrial fib Hx Congestive Heart Failure: Yes Hx Pacemaker: No Hx Hypertension: Yes Hx Thyroid Disease: Yes Hx Diabetes: Yes Hx Gastroesophageal Reflux: No Hx Renal Disease: No Hx Cancer: No Hx of HIV: No Hx Hepatitis C: No Hx MRSA: No Surgical History: other - Vaccination History Hx Tetanus, Diphtheria Vaccination: No - 5 years ago Hx Influenza Vaccination: Yes Hx Pneumococcal Vaccination: Yes - Social History Hx Tobacco Use: No Hx Chewing Tobacco Use: No Hx Alcohol Use: Yes - occasional Hx Substance Use: No Hx Substance Use Treatment: No Hx Depression: No Hx Physical Abuse: No Hx Emotional Abuse: No Hx Suspected Abuse: No - Female History Patient : No Family Medical History - Family History Father Family History: Unknown Name: Ton Gomez Living Status: Age at (years of age): 41 Cause of : enlarged heart and acute alcohol poisioning Hx Family Asthma: No Hx Family Congestive Heart Failure: Yes Hx Family Hypertension: Yes Hx Family Stroke: No Hx Cardiac Disease: Yes Hx Family Diabetes: Yes Hx Family Cancer: No Physical Exam - Physical Exam General Appearance: Alert, Comfortable, No apparent distress, Well Developed, Well Groomed, Well Hydrated, Well Nourished Cardiovascular/Chest: normal peripheral pulses Respiratory: no respiratory distress Extremity: normal range of motion, non-tender, no pedal edema Neurologic: no motor/sensory deficits, alert, normal mood/affect, oriented x 3 Skin Exam: warm/dry Skin Problem Location: lower extremities - R inner ankle Skin Character: other - 1 cm laceration with moderate bleeding. Comments: Vital Signs 11/26/16 06:49 Temperature 98.3 F Pulse Rate [ 53 L Right] Respiratory 18 Rate Blood Pressure 141/94 [left] O2 Sat by Pulse 97 Oximetry Procedures - Laceration/Wound Repair Right Medial Ankle Wound Length (cm): 1 Wound's Depth, Shape: superficial, linear Wound Explored: no foreign body removed Betadine Prep?: No - Cleaned extensively with Hibiclens Anesthesia: Lidocaine w/ Epi Volume Anesthetic (cc's): 1.5 Wound Debrided: minimal Wound Repaired With: steri-strips Layer Closure?: No Sterile Dressing Applied?: Yes - Pressure dressing applied to wound Splint Applied?: No Sling Applied?: No Progress: Wound was treated with Silver Nitrate with minimal bleeding after. No bleeding noted once steri-strips applied. Departure - Departure Clinical Impression: Laceration Time of Disposition: 07:31 Disposition: Discharge to Home or Self Care Condition: Good Departure Forms: ED Discharge - Pt. Copy, Patient Portal Self Enrollment Instructions: DI for Laceration Repair Steri-Strips Diet: resume usual diet Activity: increase activity as tolerated Referrals: Mckenzie Barrett DO [Primary Care Provider] - 1-2 Weeks Prescriptions: Cephalexin Monohydrate [Keflex] 500 mg PO BID #14 cap Home Medications: Ambulatory Orders Levothyroxine Sodium [Levoxyl] 137 mcg PO DAILY 10/13/14 Lubiprostone [Amitiza] 24 mcg PO BID 10/13/14 Nitroglycerin [Nitrostat] 0.4 mg SL Q5MIN PRN 10/13/14 Pravastatin Sodium [Pravachol] 40 mg PO BEDTIME 10/13/14 Quetiapine Fumarate [Seroquel Xr] 50 mg PO BEDTIME 10/13/14 Venlafaxine HCl [Venlafaxine HCl ER] 150 mg PO DAILY 10/13/14 fentaNYL PATCH 100 MCG/HR [Duragesic Patch 100 MCG/HR] 100 mcg TOP Q72H Clonazepam 0.5 mg PO BEDTIME PRN 11/10/15 Cyanocobalamin Inj [Vitamin B-12 Inj] 1,000 mcg IM WKLY 11/10/15 Digoxin [Lanoxin Tab] 0.125 mg PO DAILY@1200 11/10/15 Docusate Sodium [Colace] 100 mg PO BID 11/10/15 Furosemide 40 mg PO BID PRN 11/10/15 Polyethylene Glycol 3350 [Miralax] 17 gm PO DAILY 11/10/15 Trazodone HCl 150 mg PO BEDTIME 11/10/15 Apixaban [Eliquis] 5 mg PO BID 01/21/16 Ferrous Sulfate [Feosol Tab] 65 mg PO DAILY 01/21/16 Flecainide [Tambocor] 100 mg PO BID 01/21/16 HYDROcodone 10MG/APAP 325MG [[place] 10/325] 1 tab PO Q4H PRN 01/21/16 Insulin Glargine [Toujeo Solostar] 10 dose SC DAILY 01/21/16 Mometasone Furoate-Formoterol [Dulera 200-5 Mcg/Act] 1 aer IN BID 01/21/16 Potassium Chloride Microencaps [Klor-Con M20] 20 meq PO BID PRN 01/21/16 diltiaZEM HCL CD [Cardizem CD] 120 mg PO QD 01/21/16 Cephalexin Monohydrate [Keflex] 500 mg PO BID #14 cap 11/26/16 Additional Instructions: Keep pressure dressing on X 48 hours Elevate as needed Only start antibiotic if signs of infection present.
[2016-11-26 07:51] VITALS: BP 129/83
== END 2016-11-26 07:43 | disposition home or self-care (01) ==
LOC: ER 06:40
DX: S91.011A Laceration without foreign body, right ankle, initial encounter (principal); J44.9 Chronic obstructive pulmonary disease, unspecified; I48.91 Unspecified atrial fibrillation; I11.0 Hypertensive heart disease with heart failure; I50.9 Heart failure, unspecified; E07.9 Disorder of thyroid, unspecified; E11.9 Type 2 diabetes mellitus without complications; Z79.82 Long term (current) use of aspirin; Z79.01 Long term (current) use of anticoagulants; Z79.4 Long term (current) use of insulin; Z88.6 Allergy status to analgesic agent; Z79.899 Other long term (current) drug therapy; W26.0XXA Contact with knife, initial encounter; Y92.9 Unspecified place or not applicable

== ENCOUNTER → 2016-11-30 | Outpatient (CLI) | payer MEDICARE, MEDICAID | END | disposition home or self-care (01) | LOC: LAB.O 11:27 | PROVIDERS: ATTEND Orthopaedic Surgery | DX: Z01.818 Encounter for other preprocedural examination (principal) ==

== ENCOUNTER 2016-12-14 06:24 | Day surgery (SDC) | payer MEDICARE, MEDICAID ==
--- NOTE | 2016-12-09 17:14 | HP ---
CHIEF COMPLAINT: Left shoulder pain. HISTORY OF PRESENT ILLNESS: Aníbal is a 66 year-old male with a history of pain in the left shoulder that has been going on for years. He has had multiple injections in the past and does have a rotator cuff tear. He has failed conservative measures and therefore has requested operative intervention. After discussing the risks, benefits, and alternatives to operative intervention, he has given informed consent for rotator cuff repair. PAST SURGICAL HISTORY: 1. Cervical fusion. 2. Carpal tunnel release. 3. Lolis-en-Y gastric bypass. 4. Cardiac catheterization. 5. Cholecystectomy. 6. Rotator cuff repair on the contralateral side. CURRENT MEDICATIONS: 1. Terbinafine. 2. Metformin. 3. Pravastatin. 4. Naprosyn. 5. Vitamins. 6. Levothyroxine. 7. Metoprolol. 8. Potassium. 9. Enalapril. 10. Diltiazem. 11. Furosemide. 12. Warfarin. ALLERGIES: CODEINE. CODE STATUS: FULL CODE. IMMUNIZATIONS: Up to date. FAMILY HISTORY: None pertinent to today's complaints. SOCIAL HISTORY: He does not drink, smoke or use any illicit drugs. REVIEW OF SYSTEMS: Negative except as indicated in the History of Present Illness. PHYSICAL EXAMINATION: VITAL SIGNS: Blood pressure 150/91, pulse 60, height 6', weight 260. GENERAL: He is somewhat obese male in no acute distress. MENTAL STATUS: The patient is awake, alert, and is able to give a good history and participate in the physical. The patient is oriented to person, place and time. SKIN: Normal tone and turgor. MUSCULOSKELETAL: He has abduction and forward flexion both to about 90 degrees before he refuses to go any further. Internal rotation is about to the level of L4. 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 He has a negative belly press maneuver. Sensation is intact over the lateral aspect of the shoulder. ASSESSMENT: 1. Rotator cuff tear. PLAN: At this point, we are planning for rotator cuff repair. We have discussed the risks, benefits, and alternatives to that and he has given informed consent for that. #[id number] [facility]
[~2016-12-14 06:24] MED LIST: LACTATED RINGERS 1,000 ML ONE; LIDOCAINE 1% W/ EPINEPHRINE 20 ML VIAL INJ ONE; SODIUM CHL 0.9% 100ML MINI-BAG 100 ML IVPB ONE; ceFAZolin SODIUM 1 GM VIAL ONE
[2016-12-14] MEDS ORDERED: fentaNYL CITRATE INJ 50 MCG/ML AMP ONE (06:29)
[2016-12-14] MEDS ORDERED: LIDOCAINE 2 % GEL 5 ML TUBE TOP ONE (06:29)
[2016-12-14] MEDS ORDERED: ROCURONIUM BROMIDE 10 MG/ML VIAL ONE (06:29)
[2016-12-14] MEDS ORDERED: LACTATED RINGERS 1,000 ML ONE (06:30)
[2016-12-14] MEDS ORDERED: ATROPINE SULFATE 0.4 MG/ML 1ML VIAL ONE (07:00)
[2016-12-14] MEDS ORDERED: MIDAZOLAM INJ 5 MG/5 ML VIAL ONE (07:00)
[2016-12-14] MEDS ORDERED: PROPOFOL 200 MG/20 ML VIAL IV ONE (07:00)
[2016-12-14] MEDS ORDERED: ePHEDrine SULF 50 MG/ML ONE (07:00)
[2016-12-14] MEDS ORDERED: NEOSTIGMINE METHYLSULFATE 1 MG/ML ML IV ONE (07:00)
[2016-12-14] MEDS ORDERED: HYDROCORTISONE SOD SUCC INJ 100 MG/2 ML VIAL ONE (07:00)
[2016-12-14] MEDS ORDERED: CLINDAMYCIN IV 900MG 50 ML IVPB ONE (07:39)
[2016-12-14] MEDS: BUPIVACAINE 0.5% W/EPI 30 ML VIAL INJ ONE ×2 (07:56→09:14)
[2016-12-14] MEDS: ceFAZolin SODIUM 1 GM VIAL ONE ×2 (07:56→08:51)
[2016-12-14] MEDS: VANCOMYCIN HCL INJ 1,000 MG VIAL IVPB ONE ×2 (07:57→08:51)
[2016-12-14] MEDS: MORPHINE SULFATE INJ 10 MG/ML VIAL ONE ×2 (10:00→10:22)
--- NOTE | 2016-12-14 10:11 | OP ---
DATE OF PROCEDURE: 12/14/16 PREOPERATIVE DIAGNOSIS: 1. Rotator cuff tear. 2. Osteoarthritis of the shoulder. POSTOPERATIVE DIAGNOSIS: 1. Rotator cuff tear. 2. Osteoarthritis of the shoulder. PROCEDURE: 1. Rotator cuff repair. 2. Subacromial decompression. SURGEON: Eddie Cronin MD. OPTO MECHANICAL TECHNICIAN: Jacky Diamond CST, -Jennifer. ANESTHESIA: General. COMPLICATIONS: None. FINDINGS: Large tear involving the supraspinatus extending down to the superior edge of the subscapularis. INDICATION: Mr. Smith has a history of shoulder pain that has been getting progressively worse. Mr. Smith had an MRI and the MRI showed the above findings. I talked with him about those findings and about the fact that he does have preexisting arthritis. He elected at this time to undergo repair of his rotator cuff. We talked about the fact that should this fail, he will likely be in line for a total shoulder arthroplasty. PROCEDURE: The patient was brought to the Operating Room and placed in the supine position. General anesthesia was induced and the patient was placed in the beach chair position. The arm and shoulder were then sterilely prepped and draped. Following prepping and draping, an incision was made at the lateral border of the acromion and full thickness skin flaps were developed. Following that, there was a split made between the anterior and middle heads of the deltoid and a small portion of the anterior deltoid was released from the acromion. After full bursectomy, an acromioplasty was performed. Following that, the rotator cuff was identified and the above-mentioned tear was noted. The tear was fully debrided and the area at the anatomic insertion was debrided. A SutureBridge construct was used to reapproximate the tendon. Despite the poor nature of the tissue, the rotator cuff was mobile and I was able to reapproximate the tendon without significant tension. The wound was very thoroughly irrigated and the deltoid was reapproximated. Following reapproximation, the subcutaneous tissues were closed with a running suture and the skin was closed with Nylon. Sterile dressings were placed. The patient was placed in a sling, awoken from anesthesia and taken to Recovery. POSTOPERATIVE INSTRUCTIONS: The patient will be limited with regards to range of motion for probably four to six weeks before we begin therapy. Given the nature of the tear, I did let his family know and I will reiterate to him the need for very slow progression of therapy. He will followup in two days. #[id number] [facility]
[2016-12-14 11:41] VITALS: O2SAT 95
[2016-12-14 13:37] VITALS: BP 138/68; TEMP 97.3
== END 2016-12-14 12:10 | disposition home or self-care (01) ==
LOC: AMB 06:24
PROVIDERS: ATTEND Orthopaedic Surgery
DX: M75.102 Unspecified rotator cuff tear or rupture of left shoulder, not specified as traumatic (principal); M19.012 Primary osteoarthritis, left shoulder; I10 Essential (primary) hypertension; E78.5 Hyperlipidemia, unspecified; I25.10 Atherosclerotic heart disease of native coronary artery without angina pectoris; I25.2 Old myocardial infarction; E11.9 Type 2 diabetes mellitus without complications; E03.9 Hypothyroidism, unspecified; E66.9 Obesity, unspecified; Z68.34 Body mass index [BMI] 34.0-34.9, adult; Z87.891 Personal history of nicotine dependence; J44.9 Chronic obstructive pulmonary disease, unspecified; Z88.8 Allergy status to other drugs, medicaments and biological substances; F43.10 Post-traumatic stress disorder, unspecified; F40.01 Agoraphobia with panic disorder; G47.00 Insomnia, unspecified; I69.354 Hemiplegia and hemiparesis following cerebral infarction affecting left non-dominant side; Z98.84 Bariatric surgery status; Z79.01 Long term (current) use of anticoagulants; Z79.4 Long term (current) use of insulin; Z79.84 Long term (current) use of oral hypoglycemic drugs; Z79.899 Other long term (current) drug therapy
CPT/HCPCS: 01630; 23420; 36416; 82948; J0690; J1720; J2250; J2270; J2710; J3010; J3370; J3490; J7050; J7120

== ENCOUNTER → 2016-12-27 | Outpatient (CLI) | payer MEDICARE, MEDICAID | LOC: RESP 10:03 | DX: I48.91 Unspecified atrial fibrillation (principal) ==

== ENCOUNTER → 2017-02-15 | Outpatient (CLI) | payer MEDICARE, MEDICAID | END | disposition home or self-care (01) | LOC: NC 09:51 | PROVIDERS: ATTEND Family Medicine | DX: E78.5 Hyperlipidemia, unspecified (principal); E11.9 Type 2 diabetes mellitus without complications; R79.89 Other specified abnormal findings of blood chemistry ==

== ENCOUNTER 2017-02-27 05:54 | Day surgery (SDC) | payer MEDICARE, MEDICAID ==
[2017-02-27] MEDS ORDERED: TROP 1%/CYCLOPEN 1%/PHENYL 2% DROPS ONE (06:23)
[2017-02-27] MEDS ORDERED: PROPARACAINE 0.5% OPHTH SOL 15 ML BTTL ONE (06:23)
[2017-02-27] MEDS ORDERED: MIDAZOLAM INJ 2 MG/2 ML VIAL ONE (07:02)
[2017-02-27] MEDS ORDERED: TROP 1%/CYCLOPEN 1%/PHENYL 2% DROPS OPHTH ONE (08:02)
[2017-02-27] MEDS ORDERED: PROPARACAINE 0.5% OPHTH SOL 15 ML BTTL LEFT_EYE ONE ×2 (08:02→09:09)
[2017-02-27] MEDS ORDERED: TOBRAMYCIN SULF 0.3 % OPHTH OINT 1 APPLIC LEFT_EYE ONE (08:02)
[2017-02-27] MEDS ORDERED: TOBRAMYCIN SULF 0.3 % OPHT SOL 1 DROP LEFT_EYE ONE ×3 (08:03→09:26)
[2017-02-27 08:23] VITALS: O2SAT 96
[2017-02-27] MEDS ORDERED: LIDOCAINE 1% PF 2 ML AMP INJ ONE (09:17)
[2017-02-27] MEDS ORDERED: DEXAMETHASONE 0.1% OPHTH SOL 1 DROP LEFT_EYE ONE ×2 (09:22→09:27)
[2017-02-27] MEDS ORDERED: BRIMONIDINE 0.2% OPHTH DROPS LEFT_EYE ONE ×2 (09:22→09:27)
[2017-02-27 15:02] VITALS: BP 153/106; TEMP 97.6
== END 2017-02-27 10:25 | disposition home or self-care (01) ==
LOC: AMB 05:54
PROVIDERS: ATTEND Ophthalmology
DX: H25.12 Age-related nuclear cataract, left eye (principal); I10 Essential (primary) hypertension; I25.10 Atherosclerotic heart disease of native coronary artery without angina pectoris; I48.91 Unspecified atrial fibrillation; I25.2 Old myocardial infarction; E11.36 Type 2 diabetes mellitus with diabetic cataract; E66.9 Obesity, unspecified; Z88.8 Allergy status to other drugs, medicaments and biological substances; Z79.01 Long term (current) use of anticoagulants; Z79.899 Other long term (current) drug therapy
CPT/HCPCS: 36416; 66984; 82948; J2250

== ENCOUNTER 2017-03-13 06:12 | Day surgery (SDC) | payer MEDICARE, MEDICAID ==
[2017-03-13] MEDS ORDERED: TROP 1%/CYCLOPEN 1%/PHENYL 2% DROPS ONE (06:35)
[2017-03-13] MEDS: TOBRAMYCIN SULF 0.3 % OPHT SOL 1 DROP RIGHT_EYE ONE ×2 (07:41→08:52)
[2017-03-13] MEDS: PROPARACAINE 0.5% OPHTH SOL 15 ML BTTL ONE ×2 (07:41→08:28)
[2017-03-13] MEDS ORDERED: MIDAZOLAM INJ 2 MG/2 ML VIAL ONE (08:11)
[2017-03-13] MEDS ORDERED: LIDOCAINE 1% PF 2 ML AMP INJ ONE (08:30)
[2017-03-13] MEDS ORDERED: DEXAMETHASONE 0.1% OPHTH SOL 1 DROP RIGHT_EYE ONE ×2 (08:47→08:52)
[2017-03-13] MEDS ORDERED: BRIMONIDINE 0.2% OPHTH DROPS RIGHT_EYE ONE ×2 (08:48→08:52)
[2017-03-13] MEDS ORDERED: TOBRAMYCIN SULF 0.3 % OPHT SOL 1 DROP RIGHT_EYE ONE (08:48)
[2017-03-13 12:43] VITALS: TEMP 96.8; O2SAT 96
[2017-03-13 12:45] VITALS: BP 135/86
== END 2017-03-13 10:00 | disposition home or self-care (01) ==
LOC: AMB 06:12
PROVIDERS: ATTEND Ophthalmology
DX: H25.11 Age-related nuclear cataract, right eye (principal); I10 Essential (primary) hypertension; I25.10 Atherosclerotic heart disease of native coronary artery without angina pectoris; E11.36 Type 2 diabetes mellitus with diabetic cataract; E66.9 Obesity, unspecified; J44.9 Chronic obstructive pulmonary disease, unspecified; I48.91 Unspecified atrial fibrillation; Z87.891 Personal history of nicotine dependence; Z88.8 Allergy status to other drugs, medicaments and biological substances; Z79.01 Long term (current) use of anticoagulants; Z79.899 Other long term (current) drug therapy
CPT/HCPCS: 00142; 36416; 66984; 82948; J2250

== ENCOUNTER 2017-10-23 05:28 | Day surgery (SDC) | payer MEDICARE, MEDICAID ==
[2017-10-23] MEDS ORDERED: TROP 1%/CYCLOPEN 1%/PHENYL 2% DROPS ONE (05:57)
[2017-10-23] MEDS ORDERED: PROPARACAINE 0.5% OPHTH SOL 15 ML BTTL ONE (05:57)
[2017-10-23] MEDS ORDERED: TOBRAMYCIN SULF 0.3 % OPHT SOL 1 DROP ONE (07:00)
== END 2017-10-23 14:30 | disposition home or self-care (01) ==
LOC: AMB 05:28
PROVIDERS: ATTEND Ophthalmology
DX: H26.491 Other secondary cataract, right eye (principal); Z88.5 Allergy status to narcotic agent

== ENCOUNTER 2017-11-06 06:10 | Day surgery (SDC) | payer MEDICARE, MEDICAID ==
[2017-11-06] MEDS ORDERED: TOBRAMYCIN SULF 0.3 % OPHT SOL 1 DROP OPHTH ONE (08:00)
[2017-11-06] MEDS ORDERED: TROP 1%/CYCLOPEN 1%/PHENYL 2% DROPS ONE (08:33)
[2017-11-06] MEDS ORDERED: PROPARACAINE 0.5% OPHTH SOL 15 ML BTTL ONE (08:33)
== END 2017-11-06 11:45 | disposition home or self-care (01) ==
LOC: AMB 06:10
PROVIDERS: ATTEND Ophthalmology
DX: H26.492 Other secondary cataract, left eye (principal)

== ENCOUNTER 2018-04-16 11:33 | Emergency (ER) | payer MEDICARE, MEDICAID ==
[2018-04-16 11:45] VITALS: TEMP 98.7
[2018-04-16] MEDS ORDERED: NITROGLYCERIN 0.4 MG 25 EA TAB SL ONE (12:02)
[2018-04-16 12:20] VITALS: O2SAT 97
--- NOTE | 2018-04-16 12:59 | RAD ---
Frontal view radiograph pelvis. 2 radiographs left hip. Indication: fell on curb Comparison: None. Impression: No displaced fracture of the pelvis or hips identified. Evaluation for fracture is limited given the degree of osteopenia. If high clinical concern for acute fracture, correlation with MRI recommended given its greater sensitivity in the osteopenic patient. If the patient cannot tolerate MRI imaging or more urgent imaging is required, CT could be performed, however it is less sensitive in the osteopenic patient when compared to MRI. Mild left and moderate right hip osteoarthritis. Lower lumbar disc disease. Osteopenia. If this is a new finding, DEXA scan recommended as well as evaluation for possible osteoporosis treatment. Electronically signed by: Kai Allred MD 04/16/2018 12:58 PM [facility]
--- NOTE | 2018-04-16 13:01 | RAD ---
Three-view left knee Indication: fell on curb Comparison: None. Impression: Tiny effusion. No acute fracture or malalignment. Chondrocalcinosis of the menisci. Moderate tricompartmental joint space narrowing with tiny joint line osteophytes. Enthesophyte formation quadriceps tendon insertion. Scattered apical sclerosis noted. Electronically signed by: Kai Allred MD 04/16/2018 12:59 PM [facility]
--- NOTE | 2018-04-16 13:14 | ED.PDOC ---
History of Present Illness - General Chief Complaint: Trauma Stated Complaint: LEFT HIP AND LEG PAIN Time Seen by Provider: 04/16/18 12:02 Source: patient Exam Limitations: no limitations - History of Present Illness Initial Comments: the patient is a 68-year-old male presenting to the emergency room after having fallen while going down a step with his walker. He landed on his left side and he has pain in his left hip and his left knee. He has a mild dodd abrasion. He actually moves the extremity quite well. No other injuries. Timing/Duration: momentarily Severity: moderate Improving Factors: nothing Worsening Factors: movement Allergies/Adverse Reactions: Allergies Codeine Allergy (Severe, Verified 10/19/16 12:21) Other Creates a feeling of having a heart attack, panic attack Home Medications: Ambulatory Orders Levothyroxine Sodium [Levoxyl] 137 mcg PO DAILY 10/13/14 Lubiprostone [Amitiza] 24 mcg PO BID 10/13/14 Nitroglycerin [Nitrostat] 0.4 mg SL Q5MIN PRN 10/13/14 Pravastatin Sodium [Pravachol] 40 mg PO BEDTIME 10/13/14 Quetiapine Fumarate [Seroquel Xr] 50 mg PO BEDTIME 10/13/14 Venlafaxine HCl [Venlafaxine HCl ER] 150 mg PO DAILY 10/13/14 fentaNYL PATCH 100 MCG/HR [Duragesic Patch 100 MCG/HR] 100 mcg TOP Q72H 05/24/15 Clonazepam 0.5 mg PO BEDTIME PRN 11/10/15 Cyanocobalamin Inj [Vitamin B-12 Inj] 1,000 mcg IM WKLY 11/10/15 Docusate Sodium [Colace] 100 mg PO BID 11/10/15 Furosemide 40 mg PO BID PRN 11/10/15 Polyethylene Glycol 3350 [Miralax] 17 gm PO DAILY 11/10/15 Trazodone HCl 150 mg PO BEDTIME 11/10/15 Apixaban [Eliquis] 5 mg PO BID 01/21/16 Ferrous Sulfate [Feosol Tab] 65 mg PO DAILY 01/21/16 Flecainide [Tambocor] 100 mg PO BID 01/21/16 HYDROcodone 10MG/APAP 325MG [[place] 10/325] 1 tab PO Q4H PRN 01/21/16 Insulin Glargine [Toujeo Solostar] 10 dose SC DAILY 01/21/16 Mometasone Furoate-Formoterol [Dulera 200-5 Mcg/Act] 1 aer IN BID 01/21/16 Potassium Chloride Microencaps [Klor-Con M20] 20 meq PO DAILY 01/21/16 diltiaZEM HCL CD [Cardizem CD] 120 mg PO QD 01/21/16 Cephalexin Monohydrate [Keflex] 500 mg PO BID #14 cap 11/26/16 Review of Systems - Review of Systems Constitutional: States: no symptoms reported EENTM: States: no symptoms reported Respiratory: States: no symptoms reported Cardiology: States: no symptoms reported Gastrointestinal/Abdominal: States: no symptoms reported Genitourinary: States: no symptoms reported Musculoskeletal: States: see HPI Skin: States: see HPI Neurological: States: no symptoms reported Endocrine: States: no symptoms reported All other Systems: No Change from Baseline Past Medical History (General) - Patient Medical History Hx Seizures: No Hx Stroke: Yes Hx Dementia: No Hx Asthma: No Hx of COPD: Yes Hx Cardiac Disorders: Yes Hx Congestive Heart Failure: Yes Hx Pacemaker: No Hx Hypertension: Yes Hx Thyroid Disease: Yes Hx Diabetes: Yes - ate and took medication this am Hx Gastroesophageal Reflux: No Hx Renal Disease: No Hx Cancer: No Hx of HIV: No Hx Hepatitis C: No Hx MRSA: No - Vaccination History Hx Tetanus, Diphtheria Vaccination: No - 2011 Hx Influenza Vaccination: Yes Hx Pneumococcal Vaccination: Yes Immunizations Up to Date: No - Social History Hx Tobacco Use: No Hx Chewing Tobacco Use: No Hx Alcohol Use: Yes - OCC Hx Substance Use: No Hx Substance Use Treatment: No Hx Depression: No Hx Physical Abuse: No Hx Emotional Abuse: No Hx Suspected Abuse: No - Female History Patient : No Family Medical History - Family History Father Family History: Unknown Name: Ton Gomez Living Status: Age at (years of age): 41 Cause of : enlarged heart and acute alcohol poisioning Hx Family Asthma: No Hx Family Congestive Heart Failure: Yes Hx Family Hypertension: Yes Hx Family Stroke: No Hx Cardiac Disease: Yes Hx Family Diabetes: Yes Hx Family Cancer: No Physical Exam - Physical Exam General Appearance: Alert, Comfortable, No apparent distress Eye Exam: bilateral normal Ears, Nose, Throat: normal ENT inspection, normal pharynx Neck: full range of motion, supple Respiratory: no respiratory distress, no accessory muscle use Cardiovascular/Chest: normal peripheral pulses, no edema Peripheral Pulses: radial,right: 2+, radial,left: 2+, dorsalis pedis,right: 2+, dorsalis pedis,left: 2+ Gastrointestinal/Abdominal: non tender, soft Rectal Exam: deferred Back Exam: no vertebral tenderness Extremity: normal range of motion, no pedal edema, no calf tenderness, normal capillary refill, other - I'll plan to palpation over the left hip. No palpable deformity. Passive and active range of motion are preserved. Mild pain over the anterior left dodd where he does have an abrasion. 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 X-rays of the left hip, pelvis and knee show no evidence of any fracture or dislocation. He needs to ambulate carefully prevent further falls. He will likely be sore for several weeks. ER warnings were given. Keep routine follow-up with primary care doctor otherwise. Topical heat may also help reduce symptoms. - EKG/XRAY/CT CT Ordered: No CT Interpretation Call Back: No Departure - Departure Clinical Impression: Recurrent falls while walking Disposition: Discharge to Home or Self Care Condition: Fair Departure Forms: ED Discharge - Pt. Copy, Patient Portal Self Enrollment Diet: diabetic diet Activity: increase activity as tolerated Referrals: Mckenzie Barrett DO [Primary Care Provider] - 1-2 Weeks Home Medications: Ambulatory Orders Levothyroxine Sodium [Levoxyl] 137 mcg PO DAILY 10/13/14 Lubiprostone [Amitiza] 24 mcg PO BID 10/13/14 Nitroglycerin [Nitrostat] 0.4 mg SL Q5MIN PRN 10/13/14 Pravastatin Sodium [Pravachol] 40 mg PO BEDTIME 10/13/14 Quetiapine Fumarate [Seroquel Xr] 50 mg PO BEDTIME 10/13/14 Venlafaxine HCl [Venlafaxine HCl ER] 150 mg PO DAILY 10/13/14 fentaNYL PATCH 100 MCG/HR [Duragesic Patch 100 MCG/HR] 100 mcg TOP Q72H 05/24/15 Clonazepam 0.5 mg PO BEDTIME PRN 11/10/15 Cyanocobalamin Inj [Vitamin B-12 Inj] 1,000 mcg IM WKLY 11/10/15 Docusate Sodium [Colace] 100 mg PO BID 11/10/15 Furosemide 40 mg PO BID PRN 11/10/15 Polyethylene Glycol 3350 [Miralax] 17 gm PO DAILY 11/10/15 Trazodone HCl 150 mg PO BEDTIME 11/10/15 Apixaban [Eliquis] 5 mg PO BID 01/21/16 Ferrous Sulfate [Feosol Tab] 65 mg PO DAILY 01/21/16 Flecainide [Tambocor] 100 mg PO BID 01/21/16 HYDROcodone 10MG/APAP 325MG [[place] 10/325] 1 tab PO Q4H PRN 01/21/16 Insulin Glargine [Toujeo Solostar] 10 dose SC DAILY 01/21/16 Mometasone Furoate-Formoterol [Dulera 200-5 Mcg/Act] 1 aer IN BID 01/21/16 Potassium Chloride Microencaps [Klor-Con M20] 20 meq PO DAILY 01/21/16 diltiaZEM HCL CD [Cardizem CD] 120 mg PO QD 01/21/16 Cephalexin Monohydrate [Keflex] 500 mg PO BID #14 cap 11/26/16 Additional Instructions: the patient is a 68-year-old male presenting to the emergency room after having fallen while walking outside with his walker. X-rays of the left hip, pelvis and knee show no evidence of any fracture or dislocation. He needs to ambulate carefully prevent further falls. He will likely be sore for several weeks. ER warnings were given. Keep routine follow-up with primary care doctor otherwise. Topical heat may also help reduce symptoms.
[2018-04-16 13:30] VITALS: BP 136/89
== END 2018-04-16 13:30 | disposition home or self-care (01) ==
LOC: ER 11:33
DX: M25.552 Pain in left hip (principal); M25.562 Pain in left knee; S80.812A Abrasion, left lower leg, initial encounter; E11.9 Type 2 diabetes mellitus without complications; E07.9 Disorder of thyroid, unspecified; I11.0 Hypertensive heart disease with heart failure; I50.9 Heart failure, unspecified; J44.9 Chronic obstructive pulmonary disease, unspecified; Z91.81 History of falling; Z86.73 Personal history of transient ischemic attack (TIA), and cerebral infarction without residual deficits; W10.9XXA Fall (on) (from) unspecified stairs and steps, initial encounter; Z79.4 Long term (current) use of insulin; Z79.899 Other long term (current) drug therapy; Z88.5 Allergy status to narcotic agent

== ENCOUNTER → 2018-05-21 | Outpatient (CLI) | payer MEDICARE, MEDICAID | LOC: NC 08:48 | PROVIDERS: ATTEND Family Medicine | DX: E11.21 Type 2 diabetes mellitus with diabetic nephropathy (principal); I50.9 Heart failure, unspecified; E07.9 Disorder of thyroid, unspecified; J44.9 Chronic obstructive pulmonary disease, unspecified ==

== ENCOUNTER → 2018-08-23 | Outpatient (CLI) | payer MEDICARE, MEDICAID | LOC: NC 17:26 | PROVIDERS: ATTEND Family Medicine | DX: R30.0 Dysuria (principal) ==

== ENCOUNTER 2018-10-02 11:37 | Emergency (ER) | payer MEDICARE, MEDICAID ==
--- NOTE | 2018-10-02 11:52 | ED.PDOC ---
History of Present Illness - General Chief Complaint: Trauma Stated Complaint: dog tripped him and he fell Time Seen by Provider: 10/02/18 11:47 Source: patient, EMS Exam Limitations: no limitations - History of Present Illness Initial Comments: patient was coming home from rehabilitation therapy for his shoulder when his new puppy got underneath his feet and tripped him. He fell forward hitting his nose and causing loss of consciousness. He does not believe he was unconscious for very long and when he woke up he knew who and where he was. He has significant pain to both knees right worse than left and to his nose. He pushed his nose back into position after he was awakened. He denies any blurry vision, nausea or vomiting. He is on Eliquis for atrial fibrillation. Occurred: just prior to arrival Severity: moderate Injuries/Pain Location: face, lower extremity Reason for Fall: tripped Loss of Consciousness: prolonged (minutes) Improving Factors: nothing Worsening Factors: nothing Associated Symptoms (Fall): confusion, other - see HPI Allergies/Adverse Reactions: Allergies Codeine Allergy (Severe, Verified 10/19/16 12:21) Other Creates a feeling of having a heart attack, panic attack Home Medications: Ambulatory Orders Levothyroxine Sodium [Levoxyl] 137 mcg PO DAILY 10/13/14 Lubiprostone [Amitiza] 24 mcg PO BID 10/13/14 Nitroglycerin [Nitrostat] 0.4 mg SL Q5MIN PRN 10/13/14 Pravastatin Sodium [Pravachol] 40 mg PO BEDTIME 10/13/14 Quetiapine Fumarate [Seroquel Xr] 50 mg PO BEDTIME 10/13/14 Venlafaxine HCl [Venlafaxine HCl ER] 150 mg PO DAILY 10/13/14 fentaNYL PATCH 100 MCG/HR [Duragesic Patch 100 MCG/HR] 100 mcg TOP Q72H 05/24/15 Clonazepam 0.5 mg PO BEDTIME PRN 11/10/15 Cyanocobalamin Inj [Vitamin B-12 Inj] 1,000 mcg IM WKLY 11/10/15 Docusate Sodium [Colace] 100 mg PO BID 11/10/15 Furosemide 40 mg PO BID PRN 11/10/15 Polyethylene Glycol 3350 [Miralax] 17 gm PO DAILY 11/10/15 Trazodone HCl 150 mg PO BEDTIME 11/10/15 Apixaban [Eliquis] 5 mg PO BID 01/21/16 Ferrous Sulfate [Feosol Tab] 65 mg PO DAILY 01/21/16 Flecainide [Tambocor] 100 mg PO BID 01/21/16 HYDROcodone 10MG/APAP 325MG [[place] 325] 1 tab PO Q4H PRN 01/21/16 Insulin Glargine [Toujeo Solostar] 10 dose SC DAILY 01/21/16 Mometasone Furoate-Formoterol [Dulera 200-5 Mcg/Act] 1 aer IN BID 01/21/16 Potassium Chloride Microencaps [Klor-Con M20] 20 meq PO DAILY 01/21/16 diltiaZEM HCL CD [Cardizem CD] 120 mg PO QD 01/21/16 Cephalexin Monohydrate [Keflex] 500 mg PO BID #14 cap 11/26/16 Review of Systems - Review of Systems Constitutional: States: no symptoms reported EENTM: States: nose pain Respiratory: States: no symptoms reported. Denies: cough, short of breath, wheezing Cardiology: States: no symptoms reported. Denies: chest pain, edema, palpitations, syncope Gastrointestinal/Abdominal: States: no symptoms reported. Denies: abdominal pain, diarrhea, nausea, vomiting Genitourinary: States: no symptoms reported Musculoskeletal: States: see HPI Past Medical History (General) - Patient Medical History Hx Seizures: No Hx Stroke: Yes Hx Dementia: No Hx Asthma: No Hx of COPD: Yes Hx Cardiac Disorders: Yes Hx Congestive Heart Failure: Yes Hx Pacemaker: No Hx Hypertension: Yes Hx Thyroid Disease: Yes Hx Diabetes: Yes - ate and took medication this am Hx Gastroesophageal Reflux: No Hx Renal Disease: No Hx Cancer: No Hx of HIV: No Hx Hepatitis C: No Hx MRSA: No - Vaccination History Hx Tetanus, Diphtheria Vaccination: No - 2011 Hx Influenza Vaccination: Yes Hx Pneumococcal Vaccination: Yes - Social History Hx Tobacco Use: No Hx Chewing Tobacco Use: No Hx Alcohol Use: Yes - OCC Hx Substance Use: No Hx Substance Use Treatment: No Hx Depression: No Hx Physical Abuse: No Hx Emotional Abuse: No Hx Suspected Abuse: No - Female History Patient : No Physical Exam - Physical Exam General Appearance: Alert, Comfortable Head Injury: swelling - nose with deviated septum and laceration to the bridge with gross deformity Eye Exam: bilateral normal ENT Exam: hearing grossly normal, no dental injury Peripheral Pulses: radial,right: 2+, radial,left: 2+ Cardiovascular/Respiratory: no M/R/G, normal peripheral pulses, normal breath sounds, no respiratory distress, irregularly irregular Gastrointestinal/Abdominal: normal bowel sounds, non tender, soft, no organomegaly, no pulsatile mass Back Exam: no CVA tenderness, no vertebral tenderness Extremity Exam: tenderness - TTP with swelling to the right knee no deformty with abrasion to right anterior knee and lateral proximal fibula with pain to the right fibular head Neurologic: viscosity tester II-XII nml as tested, no motor/sensory deficits, alert, oriented x 3 Progress - Progress Progress: 10/02/18 13:24 Patient Name: PHOENIX HOUGH Gender: Male Date of : 1950 Referring Physician: YOSELIN ORTIZ Organization: [facility] Accession Number: [id number] Requested Date: October 02, 2018 11:47 Report Status: Final Requested Procedure: 1 Procedure Description: Knee,Right 2 or More Views Modality: CR Findings Reporting MD: Deondre Womack MD: Not available Dictation Time: Frame Sample And Pattern Supervisor: Not available Topstitcher Zigzag Date: EXAM DESCRIPTION: Knee,Right 2 or More Views CLINICAL HISTORY: 68 years, Male, fall with pain COMPARISON: None TECHNIQUE: Three views right knee FINDINGS: Three views right knee demonstrate periarticular demineralization and advanced degenerative changes and chondrocalcinosis. Extensive vascular calcification is noted. No fracture or dislocation or hemarthrosis noted. IMPRESSION: 1. Degenerative and osteopenic right knee Electronically signed by: Deondre Womack MD 6/ Patient Name: PHOENIX HOUGH Gender: Male Date of : 1950 Referring Physician: YOSELIN ORTIZ Organization: [facility] Accession Number: [id number] Requested Date: October 02, 2018 11:47 Report Status: Final Requested Procedure: 1 Procedure Description: Knee,Left 2 or More Views Modality: CR Findings Reporting MD: Deondre Womack MD: Not available Dictation Time: Frame Sample And Pattern Supervisor: Not available Topstitcher Zigzag Date: EXAM DESCRIPTION: Knee,Left 2 or More Views CLINICAL HISTORY: 68 years, Male, fall with pain COMPARISON: None TECHNIQUE: Three views of the left knee FINDINGS: Left knee is normally aligned. Moderate degenerative changes and moderate chondrocalcinosis with periarticular demineralization is present. No fracture or dislocation noted. Vascular calcification behind the knee is apparent. IMPRESSION: 1. Osteopenia with degenerative changes and chondrocalcinosis with no acute injury. Electronically signed by: Patient Name: PHOENIX HOUGH Gender: Male Date of : 1950 Referring Physician: YOSELIN ORTIZ Organization: [facility] Accession Number: [id number] Requested Date: October 02, 2018 11:47 Report Status: Final Requested Procedure: 1 Procedure Description: Tibia/Fibula,Left Modality: CR Findings Reporting MD: Deondre Womack Fellow MD: Not available Dictation Time: Frame Sample And Pattern Supervisor: Not available Topstitcher Zigzag Date: EXAM DESCRIPTION: Tibia/Fibula,Left CLINICAL HISTORY: 68 years Male, fall with pain COMPARISON: None. FINDINGS: Two views left leg demonstrate osteopenia with intact tibia and fibula. No fracture or deformity noted. No foreign body evident. IMPRESSION: Negative left leg two views Patient Name: PHOENIX HOUGH Gender: Male Date of : 1950 Referring Physician: YOSELIN ORTIZ Organization: [facility] Accession Number: [id number] Requested Date: October 02, 2018 11:47 Report Status: Final Requested Procedure: 1 Procedure Description: Head Modality: CT Findings Reporting MD: Palmer Kyle Fellow MD: Not available Dictation Time: Frame Sample And Pattern Supervisor: Not available Topstitcher Zigzag Date: EXAM DESCRIPTION: Head CLINICAL HISTORY: fall with LOC/head injury on Eliquis COMPARISON: Previous CT head March 21, 2015 TECHNIQUE: Noncontrast head CT was performed with routine protocol. 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 There is mild ventricular asymmetry which is also unchanged compared to the previous study. Otherwise normal branch-white matter differentiation. Ventricles and sulci are normal for age. No high density hemorrhage, focal edema or shift of the midline. No sulcal effacement. Normal orbital contents. Fractures of the nasal skeleton are partially visualized on this study. Correlate with maxillofacial CT if indicated. Basilar cisterns appear clear. Intact calvarium with no fracture or lytic lesion. Normal aeration of tympanic cavities and mastoid air cells. No fluid levels in the paranasal sinuses. Skull base appears intact. Symmetrical internal auditory canals. Coronal and sagittal reformatted images confirm the findings. IMPRESSION: Nasal bone fractures. Otherwise no acute intracranial pathologic process Patient Name: PHOENIX HOUGH Gender: Male Date of : 1950 Referring Physician: YOSELIN ORTIZ Organization: [facility] Accession Number: [id number] Requested Date: October 02, 2018 11:47 Report Status: Final Requested Procedure: 1 Procedure Description: Cervical Spine Modality: CT Findings Reporting MD: Deondre Womack MD: Not available Dictation Time: Frame Sample And Pattern Supervisor: Not available Topstitcher Zigzag Date: EXAM DESCRIPTION: Cervical Spine CLINICAL HISTORY: fall with LOC/head injury on Eliquis COMPARISON: None Available. TECHNIQUE: Cervical CT is performed with thin-section axial imaging. MPRs are created and reviewed as well. This exam was performed according to our departmental dose-optimization program, which includes automated exposure control, adjustment of the mA and/or kV according to patient size and/or use of iterative reconstruction technique. FINDINGS: CT cervical spine demonstrates advanced degenerative disc disease with fusion of the C5 and C6 vertebral bodies and advanced disc narrowing and endplate irregularity and degenerative change at C6-7 with milder degenerative subluxation at the C4-5 level. The ring of C1 and the odontoid are intact but advanced degenerative changes at the C1-2 articulation noted. Moderate right and left facet arthropathy is present without fusion. No fracture is evident. The spinous processes appear intact. There is however soft tissue calcification posterior to the spinous processes at C7 and T1 with what appears to be an accessory ossification center that is unfused or less likely an old fracture of the tip of the spinous process of T1. No acute injury or fracture line is seen and the alignment of the spine at the C7-T1-T2 level is anatomic. Hypertrophic degenerative changes at multiple levels is apparent. Posterior spurring at the disc spaces most prominent on the left at C6-7 and to the right at the C4-5 level the lamina and transverse processes appear intact. [facility] [address] [place] [address], [address] [place] [address] [place] T [phone] F [phone] [email or web address] - Report exported on Oct 02, 2018 13:25:05 -0500 - Page 2 of 2 IMPRESSION: Advanced degenerative disc disease and facet arthropathy with block fusion of the C5 and C6 vertebral bodies and loss of normal lordosis with mild degenerative subluxation at C4-5. No acute fracture or dislocation is noted. Soft tissue calcification and ossification behind the spinous processes at C7 and T1 suggests possibly old injury or trauma. Electronically signed by: Deondre Womack MD 10/02/2018 12:44 PM - Results/Orders Results/Orders: discussed with patient results and open fracture with laceration above nasal fracture. Patient does not feel like he would go under anesthesia nor be willing to be off his blood thinner. He manipulated his nose himself before arriving and we cannot see dye on eval after anesthesia locally given. He understands I do feel like the laceration was from the nasal fracture and he will need follow up with Plastics to plan for repair. He feels good and will follow up as outpatient. Procedures - Laceration/Wound Repair Anterior Face Wound Length (cm): 1.5 Wound's Depth, Shape: superficial Wound Explored: clean Irrigated w/ Saline (cc's): 10 Betadine Prep?: No - Hibicleanse Anesthesia: 1% Lidocaine Volume Anesthetic (cc's): 2.5 Wound Debrided: minimal Wound Repaired With: sutures Suture Size/Type: 6:0, nylon Number of Sutures: 3 Layer Closure?: No Departure - Departure Clinical Impression: Laceration Fracture of nasal bones Qualifiers: Encounter type: initial encounter Fracture type: open Qualified Code(s): S02.2XXB - Fracture of nasal bones, initial encounter for open fracture Disposition: Discharge to Home or Self Care Condition: Good Departure Forms: ED Discharge - Pt. Copy, Patient Portal Self Enrollment Instructions: DI for Trauma Referrals: Mckenzie Barrett DO [Primary Care Provider] - 1-2 Weeks Home Medications: Ambulatory Orders Levothyroxine Sodium [Levoxyl] 137 mcg PO DAILY 10/13/14 Lubiprostone [Amitiza] 24 mcg PO BID 10/13/14 Nitroglycerin [Nitrostat] 0.4 mg SL Q5MIN PRN 10/13/14 Pravastatin Sodium [Pravachol] 40 mg PO BEDTIME 10/13/14 Quetiapine Fumarate [Seroquel Xr] 50 mg PO BEDTIME 10/13/14 Venlafaxine HCl [Venlafaxine HCl ER] 150 mg PO DAILY 10/13/14 fentaNYL PATCH 100 MCG/HR [Duragesic Patch 100 MCG/HR] 100 mcg TOP Q72H 05/24/15 Clonazepam 0.5 mg PO BEDTIME PRN 11/10/15 Cyanocobalamin Inj [Vitamin B-12 Inj] 1,000 mcg IM WKLY 11/10/15 Docusate Sodium [Colace] 100 mg PO BID 11/10/15 Furosemide 40 mg PO BID PRN 11/10/15 Polyethylene Glycol 3350 [Miralax] 17 gm PO DAILY 11/10/15 Trazodone HCl 150 mg PO BEDTIME 11/10/15 Apixaban [Eliquis] 5 mg PO BID 01/21/16 Ferrous Sulfate [Feosol Tab] 65 mg PO DAILY 01/21/16 Flecainide [Tambocor] 100 mg PO BID 01/21/16 HYDROcodone 10MG/APAP 325MG [[place] 10/325] 1 tab PO Q4H PRN 01/21/16 Insulin Glargine [Toujeo Solostar] 10 dose SC DAILY 01/21/16 Mometasone Furoate-Formoterol [Dulera 200-5 Mcg/Act] 1 aer IN BID 01/21/16 Potassium Chloride Microencaps [Klor-Con M20] 20 meq PO DAILY 01/21/16 diltiaZEM HCL CD [Cardizem CD] 120 mg PO QD 01/21/16 Cephalexin Monohydrate [Keflex] 500 mg PO BID #14 cap 11/26/16 Additional Instructions: follow up with PCP in 1-2 days to get plastic surgery consult. return to ER for altered LOC, vision change, emesis, fever >100.5. clean wound with warm soapy water BID and pat dry. suture removal in 7 days.
--- NOTE | 2018-10-02 12:40 | RAD ---
EXAM DESCRIPTION: Knee,Left 2 or More Views CLINICAL HISTORY: 68 years, Male, fall with pain COMPARISON: None TECHNIQUE: Three views of the left knee FINDINGS: Left knee is normally aligned. Moderate degenerative changes and moderate chondrocalcinosis with periarticular demineralization is present. No fracture or dislocation noted. Vascular calcification behind the knee is apparent. IMPRESSION: 1. Osteopenia with degenerative changes and chondrocalcinosis with no acute injury. Electronically signed by: Deondre Womack MD 10/02/2018 12:37 PM CDT
--- NOTE | 2018-10-02 12:42 | CT ---
EXAM DESCRIPTION: Head CLINICAL HISTORY: fall with LOC/head injury on Eliquis COMPARISON: Previous CT head March 21, 2015 TECHNIQUE: Noncontrast head CT was performed with routine protocol. 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 There is mild ventricular asymmetry which is also unchanged compared to the previous study. Otherwise normal branch-white matter differentiation. Ventricles and sulci are normal for age. No high density hemorrhage, focal edema or shift of the midline. No sulcal effacement. Normal orbital contents. Fractures of the nasal skeleton are partially visualized on this study. Correlate with maxillofacial CT if indicated. Basilar cisterns appear clear. Intact calvarium with no fracture or lytic lesion. Normal aeration of tympanic cavities and mastoid air cells. No fluid levels in the paranasal sinuses. Skull base appears intact. Symmetrical internal auditory canals. Coronal and sagittal reformatted images confirm the findings. IMPRESSION: Nasal bone fractures. Otherwise no acute intracranial pathologic process. This exam was performed according to our departmental dose-optimization program, which includes automated exposure control, adjustment of the mA and/or kV according to patient size and/or use of iterative reconstruction technique. Total DLP equals 752.48 mGycm. Electronically signed by: Palmer Kyle MD 10/02/2018 12:40 PM CDT
--- NOTE | 2018-10-02 12:47 | RAD ---
EXAM DESCRIPTION: Knee,Right 2 or More Views CLINICAL HISTORY: 68 years, Male, fall with pain COMPARISON: None TECHNIQUE: Three views right knee FINDINGS: Three views right knee demonstrate periarticular demineralization and advanced degenerative changes and chondrocalcinosis. Extensive vascular calcification is noted. No fracture or dislocation or hemarthrosis noted. IMPRESSION: 1. Degenerative and osteopenic right knee Electronically signed by: Deondre Womack MD 10/02/2018 12:45 PM CDT
--- NOTE | 2018-10-02 12:47 | CT ---
EXAM DESCRIPTION: Cervical Spine CLINICAL HISTORY: fall with LOC/head injury on Eliquis COMPARISON: None Available. TECHNIQUE: Cervical CT is performed with thin-section axial imaging. MPRs are created and reviewed as well. This exam was performed according to our departmental dose-optimization program, which includes automated exposure control, adjustment of the mA and/or kV according to patient size and/or use of iterative reconstruction technique. FINDINGS: CT cervical spine demonstrates advanced degenerative disc disease with fusion of the C5 and C6 vertebral bodies and advanced disc narrowing and endplate irregularity and degenerative change at C6-7 with milder degenerative subluxation at the C4-5 level. The ring of C1 and the odontoid are intact but advanced degenerative changes at the C1-2 articulation noted. Moderate right and left facet arthropathy is present without fusion. No fracture is evident. The spinous processes appear intact. There is however soft tissue calcification posterior to the spinous processes at C7 and T1 with what appears to be an accessory ossification center that is unfused or less likely an old fracture of the tip of the spinous process of T1. No acute injury or fracture line is seen and the alignment of the spine at the C7-T1-T2 level is anatomic. Hypertrophic degenerative changes at multiple levels is apparent. Posterior spurring at the disc spaces most prominent on the left at C6-7 and to the right at the C4-5 level the lamina and transverse processes appear intact. IMPRESSION: Advanced degenerative disc disease and facet arthropathy with block fusion of the C5 and C6 vertebral bodies and loss of normal lordosis with mild degenerative subluxation at C4-5. No acute fracture or dislocation is noted. Soft tissue calcification and ossification behind the spinous processes at C7 and T1 suggests possibly old injury or trauma. Electronically signed by: Deondre Womack MD 10/02/2018 12:44 PM CDT
--- NOTE | 2018-10-02 12:55 | RAD ---
EXAM DESCRIPTION: Tibia/Fibula,Left CLINICAL HISTORY: 68 years Male, fall with pain COMPARISON: None. FINDINGS: Two views left leg demonstrate osteopenia with intact tibia and fibula. No fracture or deformity noted. No foreign body evident. IMPRESSION: Negative left leg two views. Electronically signed by: Deondre Womack MD 10/02/2018 12:53 PM CDT
[2018-10-02] MEDS ORDERED: HYDROcodone 10MG/APAP 325MG 1 EA TAB PO ONE (13:01)
[2018-10-02] MEDS ORDERED: TETANUS,DIPHTHERIA,PERTUSSIS 1 EA SYG IM ONE (13:02)
--- NOTE | 2018-10-02 15:42 | CT ---
EXAM DESCRIPTION: Maxillofacial CLINICAL HISTORY: Repeat - dizziness, continued bleeding COMPARISON: CT head same day TECHNIQUE: Noncontrast transaxial CT images of the maxillofacial region are obtained. This exam was performed according to our departmental dose-optimization program, which includes automated exposure control, adjustment of the mA and/or kV according to patient size and/or use of iterative reconstruction technique . FINDINGS: Comminuted displaced fracture of the bilateral nasal bones are again seen. Buckling fracture of the mid bony nasal septum with leftward deviation of the bony nasal septum. Rightward deviation of the anterior bony nasal septum is seen. Defect involving the floor of the left nasal canal from the anterior maxilla posteriorly without obvious soft tissue defect. Soft tissue swelling of the nasal bridge and nasal bones is seen. Complete opacification of the left nasal canal is seen with increased attenuation. No familia bullosa. No air-fluid levels in the maxillary, sphenoid, or frontal sinuses. Mild mucosal thickening in left greater than right ethmoid air cells. Zygomatic arches appear intact. Moderate vascular calcifications of the intracranial carotid arteries. No fracture or dislocation of the mandible. Periapical lucency involving the right anterior mandibular molar tooth #25. Multiple fillings are seen in the maxillary and mandibular teeth and multiple extracted teeth. Sclerotic changes with poor aeration of the mastoid air cells right greater than left. This likely represents chronic finding. Visualized intracranial structures show no acute findings. The orbits and ocular globes appear intact and symmetric. IMPRESSION: Comminuted displaced fractures of the bilateral nasal bones with overlying soft tissue swelling. Mildly displaced, mildly comminuted fractures of the mid bony nasal septum with deviation towards the left. 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 Opacification of the left nasal canal probably secondary to soft tissue thickening of the nasal canal and probable hemorrhage. Severe opacification of the left nasal canal likely represents hemorrhage and soft tissue thickening. Electronically signed by: Marcelino Shipman MD 10/02/2018 3:40 PM CDT
--- NOTE | 2018-10-02 16:03 | CT ---
EXAM DESCRIPTION: Head CLINICAL HISTORY: Repeat - dizziness, continued bleeding COMPARISON: October 02, 2018 at 1208 hours TECHNIQUE: Noncontrast transaxial CT images of the head are obtained from base to vertex. This exam was performed according to our departmental dose-optimization program, which includes automated exposure control, adjustment of the mA and/or kV according to patient size and/or use of iterative reconstruction technique. FINDINGS: The midline structures are not displaced. Sulci are age-appropriate. There are areas of decreased attenuation in the periventricular white matter and the white matter of the centrum semiovale. 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 There is no evidence of mass, mass-effect, hydrocephalus, or acute intracranial hemorrhage. No abnormal extra axial fluid collection is seen. Bone windows show no evidence of depressed skull fracture. Comminuted mildly displaced bilateral nasal bone fractures and fracture of the bony nasal septum with probable hemorrhage in the left nasal canal is again seen. Defect probably related to bony cleft pallet on the left is again seen. The visualized paranasal sinuses are unremarkable. IMPRESSION: 1. Age-appropriate atrophy with evidence of old small vessel ischemic type changes seen. 2. Nasal bone fractures and fracture of the bony nasal septum as described above and on CT of the maxillofacial. 3. Encephalomalacic changes with old left inferior cerebellar infarct seen. Electronically signed by: Marcelino Shipman MD 10/02/2018 4:01 PM CDT
[2018-10-02 16:21] VITALS: BP 156/96; TEMP 98.2; O2SAT 99
== END 2018-10-02 16:21 | disposition short-term general hospital (02) ==
LOC: ER 11:37
DX: S02.2XXB Fracture of nasal bones, initial encounter for open fracture (principal); R55 Syncope and collapse; S80.811A Abrasion, right lower leg, initial encounter; I48.91 Unspecified atrial fibrillation; M50.322 Other cervical disc degeneration at C5-C6 level; M17.12 Unilateral primary osteoarthritis, left knee; M17.11 Unilateral primary osteoarthritis, right knee; J44.9 Chronic obstructive pulmonary disease, unspecified; I51.9 Heart disease, unspecified; I50.9 Heart failure, unspecified; I11.0 Hypertensive heart disease with heart failure; E11.9 Type 2 diabetes mellitus without complications; Z86.73 Personal history of transient ischemic attack (TIA), and cerebral infarction without residual deficits; Z79.4 Long term (current) use of insulin; Z79.899 Other long term (current) drug therapy; Z88.5 Allergy status to narcotic agent; Z79.01 Long term (current) use of anticoagulants; W01.0XXA Fall on same level from slipping, tripping and stumbling without subsequent striking against object, initial encounter; Y92.009 Unspecified place in unspecified non-institutional (private) residence as the place of occurrence of the external cause

== ENCOUNTER → 2019-09-18 | Outpatient (CLI) | payer MEDICARE, MEDICAID ==
--- NOTE | 2019-09-18 16:35 | RAD ---
EXAM DESCRIPTION: Chest,2 Views CLINICAL HISTORY: CHEST PAIN COMPARISON: Previous study April 04, 2016 TECHNIQUE: PA/lateral FINDINGS: Distended bowel below the diaphragms thought to be colon and stomach. Heart size is large with normal pulmonary vascularity. Surgical clips in the right upper quadrant of the abdomen. No pleural effusion or pneumothorax. Lungs are clear with no consolidating infiltrate. Lateral view shows intact sternum and osteopenic T-spine. IMPRESSION: No acute process is identified in the chest. Electronically signed by: Palmer Kyle MD 09/18/2019 4:20 PM CDT
== END ==
LOC: RESP 13:44
PROVIDERS: ATTEND Family Medicine
DX: R07.9 Chest pain, unspecified (principal)